=== PATIENT | female | born 1990 | race Caucasian/White ===

== ENCOUNTER 2017-03-01 00:05 | Inpatient (IN) | payer OTHER ==
[~2017-03-01 00:05] MED LIST: BUTORPHANOL TARTRATE 2 MG/ML VIAL IV PRN; INSULIN REGULAR HUMAN REC 100 UNITS in NORMAL SALINE 100 ML IV PRN; LIDOCAINE HCL 50 ML VIAL PERI PRN; ONDANSETRON HCL/PF 2 MG/ML VIAL IV PRN; OXYTOCIN/DEXTROSE 5%-WATER 30 UNITS/500 ML BAG IV ONE; RINGER'S SOLUTION,LACTATED 1,000 ML IV ONE
[2017-03-01] MEDS: RINGER'S SOLUTION,LACTATED 1,000 ML IV PRN ×2 (01:17→04:41)
[2017-03-01] MEDS ORDERED: NALOXONE HCL 1 MG/1 ML SYRG IV PRN (03:24)
[2017-03-01] MEDS ORDERED: ONDANSETRON HCL/PF 2 MG/ML VIAL IV PRN (03:24)
[2017-03-01] MEDS ORDERED: BUPIVACAINE HCL/0.9 % NACL/PF 250 ML EP PRN (03:24)
[2017-03-01] MEDS ORDERED: BUPIVACAINE HCL/PF 30 ML VIAL EP SCH (03:30)
--- NOTE | 2017-03-01 04:29 | OR ---
Anesthesia Procedure Note - Anesthesia Procedure Note Date of Service: 03/01/17 Narrative: Vital Signs - Last Taken Temp 36.7 C 03/01/17 04:09 Pulse 98 03/01/17 04:09 Resp 18 03/01/17 04:09 BP 127/89 03/01/17 04:09 Pulse Ox 99 03/01/17 04:09 03/01/17 04:28 ANESTHESIA PROCEDURE NOTE Date of Procedure: 03/01/2017. Time of procedure: 0410. Performed by: Sadiq Banda CRNA Production Miner: None. Preprocedure diagnosis: Active labor. Post procedure diagnosis: Same. Procedure: Insertion of labor epidural. Indications: The patient is a 26 -year-old female in active labor requesting labor epidural for pain management. Findings: See below. Details of the procedure: The patient was placed in a sitting position. DuraPrep as well as Betadine swabs X3 was applied to the patient's back. Patient was then draped in a sterile fashion. Lidocaine 1% was infiltrated to the skin and subcutaneous tissues at the level of the L3-4 interspace. The epidural space was identified using a 18-gauge Tuohy needle with loss-of- resistance technique. Epidural catheter was inserted to a depth of 11 centimeters at skin. Negative test dose was elicited using 3 mL of 1.5% preservative-free lidocaine plus epinephrine 1 200,000. The epidural catheter was then taped and secured in place. A loading dose of 8 mL of 0.25% preservative-free bupivacaine was administered to the epidural catheter after negative aspiration for blood and CSF. EBL: Minimal. Fluids: N/A. Specimen: N/A. Post procedure condition: The patient tolerated the procedure well. No complications were noted. Thank you for this consultation. Sadiq Banda CRNA
[2017-03-01] MEDS ORDERED: ACETAMINOPHEN 325 MG TABLET PO PRN (04:45)
--- NOTE | 2017-03-01 09:17 | PN ---
Progess Note - Interim Narrative: 03/01/17 09:15 Subjective- uncomfortable Objective- SVE- /-1 FHTs- 130's, mod ana paula, pos accels, no decels [place]- q2 min Assessment and plan- Labor- induction GBS status- [negative GDM-cont. to monitor Continue current plan of care.
[2017-03-01] MEDS ORDERED: BENZOCAINE/MENTHOL 81 SPRAY CAN TP PRN (11:24)
[2017-03-01] MEDS ORDERED: HYDROCORTISONE 30 APPL TUBE TP PRN (11:24)
[2017-03-01] MEDS ORDERED: SENNOSIDES 8.6 MG TABLET PO PRN (11:24)
[2017-03-01] MEDS ORDERED: OXYTOCIN/DEXTROSE 5%-WATER 30 UNITS/500 ML BAG IV ONE (11:24)
[2017-03-01] MEDS ORDERED: GLYCERIN/WITCH HAZEL LEAF 40 APPL BOX TP PRN (11:24)
[2017-03-01] MEDS ORDERED: BISACODYL 10 MG SUPP.RECT RC PRN (11:24)
[2017-03-01] MEDS ORDERED: oxyCODONE HCL/ACETAMINOPHEN 1 TAB TABLET PO PRN (11:24)
--- NOTE | 2017-03-01 11:28 | OR ---
Operative Report - Dictated Report Narrative: Spontaneous Vaginal Delivery Viable male with APGARS of 7 at 1 minute and 8 at 9 minutes. He delivered at 1059. Presentation was MANDEEP. Tight nuchal cord was noted after delivery of the head and this was clamped and cut perineum. The left anterior shoulder delivered with gentle downward traction followed by the posterior shoulder and the remainder of the baby. I will check amount of light colored meconium stained fluid was noted after delivery of baby. Baby was taken to the warmer and tried and stimulated. Spontaneous cry was noted. Cord gases were sent. Weight: 3333 g Placenta was delivered spontaneously and intact. A first-degree vaginal laceration was noted and repaired with 2-0 Vicryl. Estimated blood loss: 100 ml Mother and baby tolerated delivery well. History for Definition: * The number of deliveries resulting in a live the patient experienced prior to current hospitalization * The previous delivery of live twins or any live multiple gestation is considered one live event. *If primagravida or nulliparous is documented select zero for the number of previous live births. Live Events: 0
[2017-03-01] MEDS: oxyCODONE HCL/ACETAMINOPHEN 1 TAB TABLET PO PRN ×3 (12:42→19:55)
[2017-03-01] MEDS: IBUPROFEN 800 MG TABLET PO PRN ×2 (12:42→19:56)
[2017-03-01] MEDS: DOCUSATE SODIUM 100 MG CAPSULE PO SCH (21:27)
[2017-03-02] MEDS: oxyCODONE HCL/ACETAMINOPHEN 1 TAB TABLET PO PRN ×6 (00:57→21:33)
[2017-03-02] MEDS: IBUPROFEN 800 MG TABLET PO PRN ×3 (06:55→21:33)
[2017-03-02] MEDS: DOCUSATE SODIUM 100 MG CAPSULE PO SCH ×2 (10:56→20:57)
--- NOTE | 2017-03-02 10:59 | PN ---
Subjective - Date and Time Seen Date: 03/02/17 Subjective Narrative: day 1, s/p , induced for GDM doing well. bottle feeding. normal lochia. ambulating well. Objective - Vitals Vitals: Last Vital Signs Temp 36.4 C L 03/02/17 07:30 Pulse 80 03/02/17 07:30 Resp 18 03/02/17 07:30 BP 133/67 03/02/17 07:30 Pulse Ox 98 03/02/17 07:30 - Exam Constitutional: Present: Alert, Oriented x3, Cooperative Respiratory: Present: no respiratory distress Cardiovascular/Chest: Present: normal peripheral pulses Abdomen: Present: soft, nontender, nondistended, other - fundus firm and one finger below umbilicus Extremity: Present: normal range of motion, no calf tenderness, pedal edema Skin Exam: Present: normal color, warm/dry, no cyanosis Eye contact: Present: cooperative, good eye contact, normal speech Assessment/Plan Plan Narrative: A: PPD#1, s/p stable and well. Plan: routine care. ambulation encouraged. Shilpa Virk MD
[2017-03-03] MEDS: oxyCODONE HCL/ACETAMINOPHEN 1 TAB TABLET PO PRN ×4 (00:37→11:31)
[2017-03-03] MEDS: IBUPROFEN 800 MG TABLET PO PRN ×2 (05:20→11:31)
[2017-03-03] MEDS: DOCUSATE SODIUM 100 MG CAPSULE PO SCH (08:11)
--- NOTE | 2017-03-03 09:43 | PN ---
Subjective - Date and Time Seen Date: 03/03/17 Subjective Narrative: day 2, s/p , induced for GDM no complaints. denies headache or blurry vision. BP labile today, varies from normal, severe and mild range. bottle feeding. small lochia. Objective - Vitals Vitals: Last Vital Signs Temp 36.5 C 03/03/17 08:00 Pulse 96 03/03/17 08:00 Resp 18 03/03/17 08:00 BP 150/72 03/03/17 08:58 Pulse Ox 100 03/03/17 08:00 - Exam Constitutional: Present: Alert, Oriented x3, Cooperative Respiratory: Present: no respiratory distress Cardiovascular/Chest: Present: normal peripheral pulses Abdomen: Present: soft, nontender, nondistended, other - fundus firm and non- tender Extremity: Present: normal range of motion, no calf tenderness, lower extremity edema - trace, pedal edema - 1+ Skin Exam: Present: normal color, warm/dry, no cyanosis Neurologic: Present: other - DTR 2+ bilaterally knee, no clonus Eye contact: Present: cooperative, good eye contact, normal speech Assessment/Plan Plan Narrative: A: PPD#2, s/p for GDM and labile BP, but asymptomatic. Plan: will discharge home if stable. preeclampsia precautions given. follow up in clinic for BP check in a week. Shilpa Virk MD
[2017-03-03 12:50] VITALS: BP 136/80
== END 2017-03-03 13:40 | disposition home or self-care (01) | DRG 775 ==
LOC: OB 00:05
PROVIDERS: ADMIT Obstetrics & Gynecology Gynecologic Oncology; ATTEND Obstetrics & Gynecology Gynecologic Oncology
PROC: 10E0XZZ Delivery of Products of Conception, External Approach (ICD-10-PCS; principal; 2017-03-01)
PROC: 4A1HXCZ Monitoring of Products of Conception, Cardiac Rate, External Approach (ICD-10-PCS; 2017-03-01)
PROC: 0HQ9XZZ Repair Perineum Skin, External Approach (ICD-10-PCS; 2017-03-01)
PROC: 00HU33Z Insertion of Infusion Device into Spinal Canal, Percutaneous Approach (ICD-10-PCS; 2017-03-01)
DX: O24.425 Gestational diabetes mellitus in childbirth, controlled by oral hypoglycemic drugs (principal); O69.1XX0 Labor and delivery complicated by cord around neck, with compression, not applicable or unspecified; O70.0 First degree perineal laceration during delivery; R03.0 Elevated blood-pressure reading, without diagnosis of hypertension; Z3A.39 39 weeks gestation of pregnancy; Z37.0 Single live birth

== ENCOUNTER 2019-09-17 11:28 | Inpatient (IN) ==
[2019-09-17] MEDS ORDERED: LIDOCAINE HCL 50 ML VIAL PERI PRN (11:41)
[2019-09-17] MEDS ORDERED: RINGER'S SOLUTION,LACTATED 1,000 ML IV ONE (11:41)
[2019-09-17] MEDS ORDERED: OXYTOCIN/DEXTROSE 5%-WATER 30 UNITS/500 ML BAG IV ONE ×2 (11:41→23:03)
[2019-09-17] MEDS ORDERED: BUTORPHANOL TARTRATE 2 MG/ML VIAL IV PRN ×2 (11:41)
[2019-09-17] MEDS ORDERED: PENICILLIN G POTASSIUM 5 MILLIONUNT in DEXTROSE 5 % IN WATER 100 ML IV ONE ×2 (11:41)
[2019-09-17] MEDS ORDERED: ONDANSETRON 4 MG TAB.RAPDIS PO PRN (11:41)
[2019-09-17 12:17] LABS: Hematocrit 35.2 % (37.0-47.0); Hemoglobin 10.1 gm/dL (12.5-16.0); Mean Corpuscular Hemoglobin 19.8 pg (27-31); Mean Corpuscular Hgb Conc 28.7 g/dl (32-36); Mean Platelet Volume 10.5 fl (8-12.5); Neutrophil # 13.9 K/mm3 (1.3-6.0); Neutrophil % 80.8 % (42-75.0); Platelet Count 421 K/mm3 (150-450); Red Cell Distribution Width 16.7 % (11.5-14.0); White Blood Count 17.2 K/mm3 (4.0-10.5)
[2019-09-17] MEDS: RINGER'S SOLUTION,LACTATED 1,000 ML IV PRN ×2 (12:18→15:07)
[2019-09-17 12:30] LABS: Albumin * 2.4 gm/dl (3.4-5.0); Anion Gap 15.2 mmol/L (6.8-13.8); Bilirubin, Total 0.4 mg/dL (0.0-1.1); Ca. Corrected For Albumin 10.4 mg/dL (8.4-10.2); Calcium * 9.4 mg/dL (7.9-10.9); Carbon Dioxide 23.9 mmol/L (24-32.6); Potassium 4.1 mmol/L (3.4-4.6); Total Protein 7.3 gm/dL (6.2-8.2)
[2019-09-17 13:49] LABS: Random Urine Total Protein 157.7 mg/dL (0-12)
[2019-09-17] MEDS ORDERED: BUPIVACAINE HCL/0.9 % NACL/PF 250 ML EP PRN (14:16)
[2019-09-17] MEDS ORDERED: NALOXONE HCL 1 MG/1 ML SYRG IV PRN (14:16)
[2019-09-17] MEDS ORDERED: ONDANSETRON HCL/PF 2 MG/ML VIAL IV PRN (14:16)
[2019-09-17] MEDS ORDERED: fentaNYL CITRATE/PF 50 MCG/ML AMPUL IT SCH (14:30)
--- NOTE | 2019-09-17 15:06 | ANES ---
Anesthesia Pre Procedure Eval Vitals/Labs: Last Vital Signs Temp 36.4 C 09/17/19 12:09 Pulse 116 H 09/17/19 12:09 Resp 18 09/17/19 12:09 BP 137/87 09/17/19 12:09 Pulse Ox 99 09/17/19 12:09 HOME MEDICATIONS prenat.vits,violeta,[id number] 1 tab PO DAILY 04/27/19 [Last Taken 09/17/19 09:00] famotidine 20 mg tablet 20 mg PO BID #60 tab 08/04/19 [Last Taken 09/17/19 09:00] Dexlansoprazole [Dexilant] 30 mg PO DAILY PRN 09/17/19 [Last Taken Unknown] Allergies/Adverse Reactions: Allergies Allergy/AdvReac Type Severity Reaction Status Date / Time bee venom protein (honey bee) Allergy Severe Anaphylaxis Verified 09/17/19 10:54 No Known Drug Allergies Allergy Verified 09/17/19 10:54 - Planned Procedure Planned Procedure: Induction Pre-Elampsia Medication List Reviewed:: Yes Allergies Verified: Yes Medical History (Last Reviewed 09/17/19 @ 15:05 by Hair Flores CRNA) Elevated BP without diagnosis of hypertension (Acute) Symptoms as documented per RN. The patient does not have epigastric pain. Her pain is musculoskeletal. The patient does have a prior history of pre- eclampsia. Pre-eclampsia labs and UP:CR today. Signs and symptoms of severe pre-eclampsia were discussed with the patient. The patient was instructed to call with signs and symptoms of severe pre-eclampsia. Follow-up in 1 week to reassess BP. Heartburn during (Acute) Rx given for esomeprazole 20 mg PO BID History of hepatitis C (Acute) Check hepatitis C antibody History of maternal Chlamydia infection, currently in third trimester (Acute) Recheck urine GC/CT UTI (urinary tract infection) (Acute) UC today Bipolar disorder (Acute) The patient admits to feeling depressed today. She does have a history of bipolar disorder. She has a Psych provider in [place] which she was instructed to contact Methamphetamine abuse (Acute) Check UDS today Migraine (Acute) The patient was counseled regarding magnesium use in up to 1000 mg daily History of incarceration (Acute) Check RPR Encounter for supervision of other normal , second trimester (Acute) Anatomy US normal History of maternal Chlamydia infection, currently in second trimester (Acute) The patient requests recheck today. Urine GC/CT sent History of UTI (Acute) Urine culture today (Acute) Initial OB visit The patient is dated by today's ultrasound which is not concordant with the patient's LMP Pap UTD. Next pap due 2019. Obtain pap at PP visit GC/CT collected today PNL ordered today Reassess BP next visit First trimester education completed today Vaginal delivery (Acute) Depression Hepatitis Onset Date: ~11/2017 Hepatitis C History of methamphetamine use Anemia Exercise-induced asthma History of chlamydia infection Onset Date: ~2014 History of gestational diabetes Onset Date: ~2016 History of delivery Onset Date: ~2016 36 weeks Pre-eclampsia in third trimester Onset Date: ~2016 Surgical History (Last Reviewed 09/17/19 @ 15:06 by Hair Flores CRNA) History of wisdom tooth extraction Onset Date: ~2009 2014 Hx of cholecystectomy Onset Date: ~2014 Family History (Last Reviewed 09/17/19 @ 15:06 by Hair Flores CRNA) Father Brain cancer, Onset Age: 53 Mother Thyroid disease Depression Hypertension Brother Bipolar disorder - Family Anesthesia History Family History:: no untoward family reactions to anesthesia - Airway/Neck/Teeth Within Normal Limits:: Yes Teeth Condition: intact Neck Exam: full range of motion Mallampatti Score: 2 Thyromental (T-M) distance: > 6 cm Mandibulo Hyoid distance: > 3 cm - Respiratory Respiratory Physical: lungs clear Smoking Status: Current every day smoker Discussed smoking cessation including day of surgery: Yes Sleep Apnea currently treated: No Sleep Apnea by current assessment: No - Cardiovascular Tolerate Activity: Good Heart Sounds: S1 & S2, Regular - Gastrointestinal NPO since: 1100 - Anesthesia Assessment and Plan ASA Class: PS, II, E Anesthesia Type Plan: Epidural Planned difficult intubation/equipment available: No
--- NOTE | 2019-09-17 15:07 | ANES ---
Post Anesthesia Assessment - Vital Signs Vitals: Last Vital Signs Temp 36.4 C 09/17/19 12:09 Pulse 116 H 09/17/19 12:09 Resp 18 09/17/19 12:09 BP 137/87 09/17/19 12:09 Pulse Ox 99 09/17/19 12:09 Airway Patency: Normal - Mental Status Level Of Consciousness: Awake - Pain Level Pain Score: 2 - N/V Assessment Nausea/Vomiting Presence: None Dehydration:: No
--- NOTE | 2019-09-17 15:07 | ANES ---
Post Anesthesia Discharge - Transfer of Care Transfer of Care handoff given to nurse: Yes - Anesthesia Post Op Note Anesthesia Post Op Note: Care transferred to OB RN
--- NOTE | 2019-09-17 15:09 | ANES ---
Anesthesia Procedure Note Procedure Note: ANESTHESIA PROCEDURE NOTE Date of Procedure: 09/17/2019 Time of procedure: 1445. Performed by: Hernán Flores CRNA Canvas Baster: None. Preprocedure diagnosis: Active labor. Post procedure diagnosis: Same. Procedure: Insertion of labor epidural. Indications: The patient is a 28-year-old multigravida female in active labor requesting labor epidural for pain management. Findings: See below. Details of the procedure: The patient was placed in a sitting position. Back was prepped with DuraPrep. Patient was then draped in a sterile fashion. Lidocaine 1% was infiltrated to the skin and subcutaneous tissues at the level of the L3 4 interspace. The epidural space was identified using a 18-gauge Tuohy needle with aidn-[id number] technique. 20 mcg fentanyl was given intrathecally using a 27 ga. spinal needle. Epidural catheter was inserted without difficulty. Negative test dose was elicited using 5 mL of 1.5% preservative-free lidocaine plus epinephrine 1 200,000. The epidural catheter was then taped and secured in place. EBL: Minimal. Fluids: N/A. Specimen: N/A. Post procedure condition: The patient tolerated the procedure well. No complications were noted. Thank you for this consultation. Parmar CRNA
--- NOTE | 2019-09-17 17:14 | HP ---
Chief Complaint - Chief Complaint Date of Service: 09/17/19 Time of Service: 17:04 Chief Complaint: labor induction History of Present Illness: 28 year old at 36w 6d who presented to the office for a routine obstetrical visit after she did not receive care for 4 weeks. She had had an elevated BP earlier in the but her BP was subsequently normal. Today she again had mild range blood pressures and symptoms. She reports regular ctx on pitocin. She denies vaginal bleeding or loss of fluid. Fetus is active. Medical History (Last Reviewed 09/17/19 @ 17:07 by Lisy Mahmood MD) Elevated BP without diagnosis of hypertension (Acute) Symptoms as documented per RN. The patient does not have epigastric pain. Her pain is musculoskeletal. The patient does have a prior history of pre- eclampsia. Pre-eclampsia labs and UP:CR today. Signs and symptoms of severe pre-eclampsia were discussed with the patient. The patient was instructed to call with signs and symptoms of severe pre-eclampsia. Follow-up in 1 week to reassess BP. Heartburn during (Acute) Rx given for esomeprazole 20 mg PO BID History of hepatitis C (Acute) Check hepatitis C antibody History of maternal Chlamydia infection, currently in third trimester (Acute) Recheck urine GC/CT UTI (urinary tract infection) (Acute) UC today Bipolar disorder (Acute) The patient admits to feeling depressed today. She does have a history of bipolar disorder. She has a Psych provider in [place] which she was instructed to contact Methamphetamine abuse (Acute) Check UDS today Migraine (Acute) The patient was counseled regarding magnesium use in up to 1000 mg daily History of incarceration (Acute) Check RPR Encounter for supervision of other normal , second trimester (Acute) Anatomy US normal History of maternal Chlamydia infection, currently in second trimester (Acute) The patient requests recheck today. Urine GC/CT sent History of UTI (Acute) Urine culture today (Acute) Initial OB visit The patient is dated by today's ultrasound which is not concordant with the patient's LMP Pap UTD. Next pap due 2019. Obtain pap at PP visit GC/CT collected today PNL ordered today Reassess BP next visit First trimester education completed today Vaginal delivery (Acute) Depression Hepatitis Onset Date: ~11/2017 Hepatitis C History of methamphetamine use Anemia Exercise-induced asthma History of chlamydia infection Onset Date: ~2014 History of gestational diabetes Onset Date: ~2016 History of delivery Onset Date: ~2016 36 weeks Pre-eclampsia in third trimester Onset Date: ~2016 Surgical History: Surgical History (Last Reviewed 09/17/19 @ 17:07 by Lisy Mahmood MD) History of wisdom tooth extraction Onset Date: ~2009 2014 Hx of cholecystectomy Onset Date: ~2014 Family History: Family History (Last Reviewed 09/17/19 @ 17:07 by Lisy Mahmood MD) Father Brain cancer, Onset Age: 53 Mother Thyroid disease Depression Hypertension Brother Bipolar disorder Social History: (Last Reviewed 09/17/19 @ 17:07 by Lisy Mahmood MD) Social History: mcc: No Marital status: Single household members: children number of children: 1 current occupational status: unemployed current occupational exposures/hazards: No Highest education level completed: some college, no degree Sexually Active: Yes Service: Yes Tobacco: Smoking Status: Current every day smoker tobacco type: cigarettes Smoking cigarettes per day: 20.0 Smoking packs per day: 1 second hand exposure: Yes Alcohol: alcohol intake: never Substance Use: substance use type: methamphetamine, other details: last used 08/2018 Dietary Habits: caffeine: Yes Type: tea Pets: pets and animals: cat(s) Exercise: Physical activity functional status: normal ROM and activity Review Of Systems (GEN) - Review of Systems Generalized/Overall Review: Present: No Symptoms Reported EENTM: Present: Blurred Vision Respiratory: Present: No Symptoms Reported Cardiac: Present: No Symptoms Reported Abdominal: Present: No Symptoms Reported Genitourinary: Present: No Symptoms Reported Musculoskeletal: Present: No Symptoms Reported Neurological: Present: No Symptoms Reported Skin: Present: No Symptoms Reported Endocrine: Present: No Symptoms Reported Allergies/Adverse Reactions: Allergies Allergy/AdvReac Type Severity Reaction Status Date / Time bee venom protein (honey bee) Allergy Severe Anaphylaxis Verified 09/17/19 10:54 No Known Drug Allergies Allergy Verified 09/17/19 10:54 Home Medications: HOME MEDICATIONS prenat.vits,violeta,ilk-qwhc-sfnza 1 tab PO DAILY 04/27/19 [Last Taken 09/17/19 09:00] famotidine 20 mg tablet 20 mg PO BID #60 tab 08/04/19 [Last Taken 09/17/19 09:00] Dexlansoprazole [Dexilant] 30 mg PO DAILY PRN 09/17/19 [Last Taken Unknown] Exam - Exam Vital Signs: Vital Signs - Last Taken Temp 36.4 C 09/17/19 12:09 Pulse 116 H 09/17/19 12:09 Resp 18 09/17/19 12:09 BP 137/87 09/17/19 12:09 Pulse Ox 99 09/17/19 12:09 Constitutional: Present: Alert, Oriented x3, Cooperative, No distress ENT Exam: Present: hearing grossly normal Eye Exam: bilateral eye: normal inspection Neck: Present: normal inspection Back Exam: Present: normal inspection Respiratory: Present: lungs clear, normal breath sounds Cardiovascular/Chest: Present: regular rate, rhythm Abdomen: Present: soft, nontender, nondistended /Rectal: Present: Other - 2/70/-3 AROM for clear fluid Extremity: Present: non-tender, no calf tenderness, pedal edema Skin Exam: Present: normal color, warm/dry, no cyanosis Appearance: Present: appropriate appearance Eye contact: Present: cooperative Thoughts: Present: normal thought pattern Diagnostic Studies: Abnormal Lab Results 09/17/19 09/17/19 09/17/19 Range/Units 11:20 12:13 12:13 WBC 17.2 H (4.0-10.5) K/mm3 Hgb 10.1 L (12.5-16.0) gm/dL Hct 35.2 L (37.0-47.0) % MCV 69.0 L (78-100) fl MCH 19.8 L (27-31) pg MCHC 28.7 L (32-36) g/dl RDW 16.7 H (11.5-14.0) % Immature Gran % (Auto) 0.80 H (0.001-0.429) % Immature Gran # (Auto) 0.14 H (0.000-0.0310) K/mm3 Neutrophils % 80.8 H (42-75.0) % Lymphocytes % 12.5 L (20-51) % Neutrophils # 13.9 H (1.3-6.0) K/mm3 Carbon Dioxide 23.9 L (24-32.6) mmol/L Anion Gap 15.2 H (6.8-13.8) mmol/L Random Glucose 114 H (70-110) mg/dL Calcium Adj for Albumin 10.4 H (8.4-10.2) mg/dL ALT 14 L (19-67) U/L Alkaline Phosphatase 190 H (50-170) U/L Albumin 2.4 L (3.4-5.0) gm/dl U Random Total Protein 157.7 H (0-12) mg/dL U Hopkins Prot/Creat Ratio 1542 H (0-199) mg/gm Laboratory Results WBC 17.2 K/mm3 (4.0-10.5) H 09/17/19 12:13 RBC 5.10 M/mm3 (4.2-5.4) 09/17/19 12:13 Hgb 10.1 gm/dL (12.5-16.0) L 09/17/19 12:13 Hct 35.2 % (37.0-47.0) L 09/17/19 12:13 MCV 69.0 fl (78-100) L 09/17/19 12:13 MCH 19.8 pg (27-31) L 09/17/19 12:13 MCHC 28.7 g/dl (32-36) L 09/17/19 12:13 RDW 16.7 % (11.5-14.0) H 09/17/19 12:13 Plt Count 421 K/mm3 (150-450) 09/17/19 12:13 MPV 10.5 fl (8-12.5) 09/17/19 12:13 Immature Gran % (Auto) 0.80 % (0.001-0.429) H 09/17/19 12:13 Immature Gran # (Auto) 0.14 K/mm3 (0.000-0.0310) H 09/17/19 12:13 Neutrophils % 80.8 % (42-75.0) H 09/17/19 12:13 Lymphocytes % 12.5 % (20-51) L 09/17/19 12:13 Monocytes % 5.4 % (0.0-9) 09/17/19 12:13 Eosinophils % 0.2 % (0.0-3.0) 09/17/19 12:13 Basophils % 0.3 % (0.0-1.0) 09/17/19 12:13 Nucleated RBC % 0.0 k/mm3 (0-1) 09/17/19 12:13 Neutrophils # 13.9 K/mm3 (1.3-6.0) H 09/17/19 12:13 Lymphocytes # 2.15 k/mm3 (1.5-3.5) 09/17/19 12:13 Monocytes # 0.9 k/mm3 (0.0-1.0) 09/17/19 12:13 Eosinophils # 0.0 k/mm3 (0.0-0.7) 09/17/19 12:13 Absolute Basophils 0.1 k/mm3 (0.0-0.1) 09/17/19 12:13 Sodium 136 mmol/L (132-142) 09/17/19 12:13 Plasma Sodium 136 mmol/L (130-142) 09/17/19 12:13 Potassium 4.1 mmol/L (3.4-4.6) D 09/17/19 12:13 Chloride 101 mmol/L (97-106) 09/17/19 12:13 Carbon Dioxide 23.9 mmol/L (24-32.6) L 09/17/19 12:13 Anion Gap 15.2 mmol/L (6.8-13.8) H 09/17/19 12:13 BUN 15 mg/dL (3-23) D 09/17/19 12:13 Creatinine 0.75 mg/dL (0.4-1.4) 09/17/19 12:13 Est GFR (Non-Af Amer) 99 mL/min (60-130) 09/17/19 12:13 BUN/Creatinine Ratio 20.0 (9.0-21.6) 09/17/19 12:13 Random Glucose 114 mg/dL (70-110) H 09/17/19 12:13 Calcium 9.4 mg/dL (7.9-10.9) 09/17/19 12:13 Calcium Adj for Albumin 10.4 mg/dL (8.4-10.2) H 09/17/19 12:13 Total Bilirubin 0.4 mg/dL (0.0-1.1) 09/17/19 12:13 AST 18 U/L (0-48) 09/17/19 12:13 ALT 14 U/L (19-67) L 09/17/19 12:13 Alkaline Phosphatase 190 U/L (50-170) H 09/17/19 12:13 Total Protein 7.3 gm/dL (6.2-8.2) 09/17/19 12:13 Albumin 2.4 gm/dl (3.4-5.0) L 09/17/19 12:13 Ur Random Creatinine 102.3 mg/dL (60-200) 09/17/19 11:20 U Random Total Protein 157.7 mg/dL (0-12) H 09/17/19 11:20 U Hopkins Prot/Creat Ratio 1542 mg/gm (0-199) H 09/17/19 11:20 Blood Type O Positive 09/17/19 12:13 Antibody Screen Negative 09/17/19 12:13 Assessment/Plan - Narrative Narrative: 28 year old at 36w 6d with symptomatic pre-eclampsia without severe features BP in the mild to normal range with one severe range BP Pitocin currently at 6 milliunits AROM done for clear fluid FHT cat 1 GBS unknown due to loss of follow-up for 4 weeks. GBS prophylaxis undertaken UDS + metaamphetamines on admission to labor and delivery Likely UTI: on PCN, treat with cefuroxime after delivery Epidural in place and the patient is comfortable with epidural - Assessment/Plan (1) Pre-eclampsia Problem: Acute Qualifiers: Trimester: third trimester Qualified Code(s): O14.93 - Unspecified pre- eclampsia, third trimester (2) Hepatitis C Assessment: The patient will follow-up with Hepatology after delivery Problem: Acute Qualifiers: Viral hepatitis chronicity: chronic Hepatic coma status: without hepatic coma Qualified Code(s): B18.2 - Chronic viral hepatitis C (3) History of maternal Chlamydia infection, currently in third trimester Assessment: Negative LUIZ Problem: Acute (4) UTI (urinary tract infection) Assessment: Receiving PCN. Treat with additional antibiotics once the UC results area available. Start cefuroxime 500mg PO BID empirically after the patient delivers Problem: Acute Qualifiers: Urinary tract infection type: acute cystitis Hematuria presence: without hematuria Qualified Code(s): N30.00 - Acute cystitis without hematuria (5) Methamphetamine abuse Problem: Acute
[2019-09-17] MEDS: PENICILLIN G POTASSIUM 2.5 MILLIONUNT in DEXTROSE 5 % IN WATER 100 ML IV SCH ×4 (17:27→21:38)
[2019-09-17] MEDS ORDERED: diphenhydrAMINE HCL 25 MG CAPSULE PO PRN (23:03)
[2019-09-17] MEDS ORDERED: HYDROCORTISONE 30 APPL TUBE TP PRN (23:03)
[2019-09-17] MEDS ORDERED: BENZOCAINE/MENTHOL 81 SPRAY CAN TP PRN (23:03)
[2019-09-17] MEDS ORDERED: BISACODYL 10 MG SUPP.RECT RC PRN (23:03)
[2019-09-17] MEDS ORDERED: SENNOSIDES 8.6 MG TABLET PO PRN (23:03)
[2019-09-17] MEDS ORDERED: GLYCERIN/WITCH HAZEL LEAF 40 APPL BOX TP PRN (23:03)
--- NOTE | 2019-09-17 23:04 | OR ---
Operative Report - Dictated Report Narrative: Date of delivery: 09/17/2019 Time of delivery: 2250 Gender: male weight: 3004 grams APGARS: 8/9 Procedure: Description of the procedure: The patient is a 28 year old at 36w 6d with pre-eclampsia without severe features who underwent medical IOL. She p rogressed to complete dilation. She delivered a viable male in EDER presentation over an intact perineum. The right hand presented along with the vertex. The shoulders delivered without any difficulty followed by the rest of the infant. Cord clamping was delayed for 40 seconds. The cord was clamped and cut. Cord blood was collected. The placenta delivered by expression and appeared intact. EBL: 200 mL Complications: none Specimens: cord blood, placenta History for MU Definition: * The number of deliveries resulting in a live the patient experienced prior to current hospitalization * The previous delivery of live twins or any live multiple gestation is considered one live event. *If primagravida or nulliparous is documented select zero for the number of previous live births. Live Events: 1
[2019-09-18] MEDS: IBUPROFEN 800 MG TABLET PO PRN ×3 (00:07→16:11)
[2019-09-18] MEDS: ACETAMINOPHEN 500 MG TABLET PO PRN ×2 (00:07→06:58)
--- NOTE | 2019-09-18 07:47 | PN ---
Subjective - Date and Time Seen Date: 09/18/19 Time: 07:45 Subjective Narrative: Patient reports she feels sore Objective Objective Narrative: See vital signs - Review of Systems Abdominal: Reports: No Symptoms Reported Genitourinary Symptoms: Reports: Other - vaginal bleeding as expected PP - Vitals Vitals: Last Vital Signs Temp 36.4 C 09/18/19 07:38 Pulse 87 09/18/19 07:38 Resp 16 09/18/19 07:38 BP 140/74 H 09/18/19 07:38 Pulse Ox 99 09/18/19 07:38 - Abnormal Lab Findings Abnormal Lab Findings: Abnormal Lab Results 09/17/19 09/17/19 09/17/19 Range/Units 11:20 12:13 12:13 WBC 17.2 H (4.0-10.5) K/mm3 Hgb 10.1 L (12.5-16.0) gm/dL Hct 35.2 L (37.0-47.0) % MCV 69.0 L (78-100) fl MCH 19.8 L (27-31) pg MCHC 28.7 L (32-36) g/dl RDW 16.7 H (11.5-14.0) % Immature Gran % (Auto) 0.80 H (0.001-0.429) % Immature Gran # (Auto) 0.14 H (0.000-0.0310) K/mm3 Neutrophils % 80.8 H (42-75.0) % Lymphocytes % 12.5 L (20-51) % Neutrophils # 13.9 H (1.3-6.0) K/mm3 Carbon Dioxide 23.9 L (24-32.6) mmol/L Anion Gap 15.2 H (6.8-13.8) mmol/L Random Glucose 114 H (70-110) mg/dL Calcium Adj for Albumin 10.4 H (8.4-10.2) mg/dL ALT 14 L (19-67) U/L Alkaline Phosphatase 190 H (50-170) U/L Albumin 2.4 L (3.4-5.0) gm/dl U Random Total Protein 157.7 H (0-12) mg/dL U [place] Prot/Creat Ratio 1542 H (0-199) mg/gm - Exam Constitutional: Present: Alert, Oriented x3, Cooperative, No distress Abdomen: Present: soft, nontender, nondistended - fundus is firm Extremity: Present: non-tender, no calf tenderness Skin Exam: Present: normal color, warm/dry, no cyanosis Appearance: Present: appropriate appearance Eye contact: Present: cooperative Thoughts: Present: normal thought pattern Cauti Physician Documentation - Urinary Catheter Management Urethral ([place]eda) Urethral Indwelling: No Date of Insertion: 09/17/19 Time of Insertion: 15:33 Date of Removal: 09/17/19 Time of Removal: 22:40 Assessment/Plan Plan Narrative: PPD 1 s/p Doing well Pre-eclampsia: BP in the normal to mild range as expected Discharge tomorrow - Problems/Diagnosis (1) Pre-eclampsia Problem: Acute Qualifiers: Trimester: third trimester Qualified Code(s): O14.93 - Unspecified pre- eclampsia, third trimester (2) Hepatitis C Problem: Acute Qualifiers: Viral hepatitis chronicity: chronic Hepatic coma status: without hepatic coma Qualified Code(s): B18.2 - Chronic viral hepatitis C (3) History of maternal Chlamydia infection, currently in third trimester Problem: Acute (4) UTI (urinary tract infection) Problem: Acute Qualifiers: Urinary tract infection type: acute cystitis Hematuria presence: without hematuria Qualified Code(s): N30.00 - Acute cystitis without hematuria (5) Methamphetamine abuse Problem: Acute
[2019-09-18] MEDS: CEFUROXIME AXETIL 500 MG TABLET PO SCH ×2 (09:55→21:02)
[2019-09-18] MEDS: oxyCODONE HCL 5 MG TABLET PO PRN ×2 (09:55→16:11)
[2019-09-18] MEDS: DOCUSATE SODIUM 100 MG CAPSULE PO SCH ×2 (12:07→21:02)
[2019-09-19] MEDS: IBUPROFEN 800 MG TABLET PO PRN ×3 (02:26→19:52)
[2019-09-19] MEDS: oxyCODONE HCL 5 MG TABLET PO PRN ×4 (04:31→23:53)
[2019-09-19] MEDS: CEFUROXIME AXETIL 500 MG TABLET PO SCH ×2 (08:11→21:04)
[2019-09-19] MEDS: DOCUSATE SODIUM 100 MG CAPSULE PO SCH ×2 (08:12→21:04)
--- NOTE | 2019-09-19 10:06 | PN ---
Subjective - Date and Time Seen Date: 09/19/19 Time: 10:05 Subjective Narrative: Patient reports she feels sore Objective Objective Narrative: See vital signs - Review of Systems Generalized/Overall Review: Reports: No Symptoms Reported Endocrine: Reports: No Symptoms Reported Misc: All systems neg except as marked - Vitals Vitals: Last Vital Signs Temp 35.7 C L 09/19/19 08:51 Pulse 86 09/19/19 08:51 Resp 16 09/19/19 08:51 BP 128/58 09/19/19 08:51 Pulse Ox 99 09/19/19 08:51 - Exam Constitutional: Present: Alert, Oriented x3, Cooperative, No distress Abdomen: Present: soft, nontender, nondistended Extremity: Present: non-tender, no calf tenderness Skin Exam: Present: normal color, warm/dry, no cyanosis Appearance: Present: appropriate appearance Eye contact: Present: cooperative Thoughts: Present: normal thought pattern Cauti Physician Documentation - Urinary Catheter Management Urethral (Ojeda) Urethral Indwelling: No Date of Insertion: 09/17/19 Time of Insertion: 15:33 Date of Removal: 09/17/19 Time of Removal: 22:40 Assessment/Plan Plan Narrative: PPD 2 s/p Doing well Pre-eclampsia without severe features: blood pressures mostly normal recently but earlier yesterday blood pressures were mild range History of PPD: restart sertraline, Rx sent today UTI: Sensitivities available today, continue cefuroxime. Rx sent for cefuroxime yesterday Discharge today Follow-up in 4 weeks or sooner for any other concerns - Problems/Diagnosis (1) Pre-eclampsia Problem: Acute Qualifiers: Trimester: third trimester Qualified Code(s): O14.93 - Unspecified pre- eclampsia, third trimester (2) Hepatitis C Problem: Acute Qualifiers: Viral hepatitis chronicity: chronic Hepatic coma status: without hepatic coma Qualified Code(s): B18.2 - Chronic viral hepatitis C (3) History of maternal Chlamydia infection, currently in third trimester Problem: Acute (4) UTI (urinary tract infection) Problem: Acute Qualifiers: Urinary tract infection type: acute cystitis Hematuria presence: without hematuria Qualified Code(s): N30.00 - Acute cystitis without hematuria (5) Methamphetamine abuse Problem: Acute
[2019-09-19] MEDS ORDERED: SERTRALINE HCL 50 MG TABLET PO SCH (21:00)
[2019-09-19 21:01] VITALS: BP 118/66
[2019-09-20] MEDS ORDERED: SERTRALINE HCL 50 MG TABLET PO SCH (09:00)
[2019-09-20] MEDS ORDERED: SERTRALINE HCL 100 MG TABLET PO SCH (09:00)
== END 2019-09-19 23:56 | disposition home or self-care (01) | DRG 806 ==
LOC: OB 11:28
PROVIDERS: ADMIT Obstetrics & Gynecology; ATTEND Obstetrics & Gynecology
DX: B17.10 Acute hepatitis C without hepatic coma; Z3A.37 37 weeks gestation of pregnancy; O14.04 Mild to moderate pre-eclampsia, complicating childbirth; O75.3 Other infection during labor; O99.324 Drug use complicating childbirth; F15.10 Other stimulant abuse, uncomplicated; Z37.0 Single live birth
CPT/HCPCS: 36415; 59025; 80053; 82570; 84155; 84156; 85025; 86850; 88307; 88888

== ENCOUNTER 2020-04-21 17:10 | Observation (INO) ==
[2020-04-21 17:32] LABS: Urine Bilirubin Negative (NEGATIVE); Urine Blood 50 /ul (NEGATIVE); Urine Ketone Negative (NEGATIVE); Urine Nitrite Negative (NEGATIVE); Urine Protein 100 mg/dL (NEGATIVE); Urine Specific Gravity 1.025 SP.GR. (1.005-1.010); Urine Urobilinogen Normal (NORMAL)
[2020-04-21] MEDS ORDERED: NORMAL SALINE 1,000 ML IV ONE ×3 (17:37→19:42)
[2020-04-21] MEDS ORDERED: KETOROLAC TROMETHAMINE 30 MG/ML VIAL IV ONE (17:37)
[2020-04-21 17:56] LABS: Urine Color Yellow
[2020-04-21 17:57] LABS: Urine Appearance Cloudy (CLEAR); Urine WBC >50 /hpf (0-5)
[2020-04-21 17:58] LABS: Urine Bacteria 1+
[2020-04-21 18:02] LABS: Albumin * 2.7 gm/dl (3.4-5.0); Anion Gap 15.4 mmol/L (6.8-13.8); BUN/Creatinine Ratio 12.8 (9.0-21.6); Bilirubin, Total 0.3 mg/dL (0.0-1.1); Ca. Corrected For Albumin 9.5 mg/dL (8.4-10.2); Calcium * 8.8 mg/dL (7.9-10.9); Carbon Dioxide 24.2 mmol/L (24-32.6); Potassium 3.6 mmol/L (3.4-4.6); Total Protein 7.9 gm/dL (6.2-8.2)
[2020-04-21 18:12] LABS: Hematocrit 36.7 % (37.0-47.0); Hemoglobin 10.8 gm/dL (12.5-16.0); Mean Cell Volume 70.7 fl (78-100); Mean Corpuscular Hemoglobin 20.8 pg (27-31); Mean Corpuscular Hgb Conc 29.4 g/dl (32-36); Mean Platelet Volume 9.4 fl (8-12.5); Neutrophil # 14.5 K/mm3 (1.3-6.0); Neutrophil % 87.5 % (42-75.0); Platelet Count 468 K/mm3 (150-450); Red Blood Count 5.19 M/mm3 (4.2-5.4); Red Cell Distribution Width 17.1 % (11.5-14.0); White Blood Count 16.6 K/mm3 (4.0-10.5)
[2020-04-21] MEDS ORDERED: ACETAMINOPHEN 500 MG TABLET PO ONE (18:27)
[2020-04-21] MEDS ORDERED: MORPHINE SULFATE 4 MG/ML SYRG IV ONE (18:32)
[2020-04-21] MEDS ORDERED: cefTRIAXone SODIUM 2,000 MG/100 ML BAG IV ONE (18:33)
[2020-04-21] MEDS ORDERED: ONDANSETRON HCL/PF 2 MG/ML VIAL ONE (18:39)
[2020-04-21] MEDS ORDERED: ONDANSETRON HCL/PF 2 MG/ML VIAL IV ONE (18:40)
--- NOTE | 2020-04-21 19:15 | ERNOTE ---
ER Female HPI Date of Service: 04/21/20 Stated Complaint: blood in urine, back pain Presenting Symptoms: dysuria, other - Hematuria, flank pain Time Seen by Provider: 04/21/20 17:21 Source: patient, RN notes reviewed Exam Limitations: no limitations Immunizations: IMMUNIZATION HX Immunizations Up to Date Yes Allergies/Adverse Reactions: Allergies bee venom protein (honey bee) Allergy (Severe, Verified 09/17/19 10:54) Anaphylaxis No Known Drug Allergies Allergy (Verified 09/17/19 10:54) Home Medications: HOME MEDICATIONS Cefuroxime Axetil [Ceftin] 500 mg PO Q12H #10 tab 09/18/19 [Last Taken Unknown] Sertraline HCl [Zoloft] 100 mg PO DAILY #30 tab 09/19/19 [Last Taken Unknown] - History of Present Illness Narrative: Miracle is a 29 year old female who presents to the ED for flank pain and urinary symptoms that have been ongoing for 5 days. She reports dysuria and urinary frequency, as well as blood in her urine at times. Her pain is in the left flank. She denies any vomiting. Her LMP was 04/18/20. She has not taken anything for her symptoms today. She also reports having a low grade fever. Timing: Present: getting worse Quality: Present: severe Onset Location: Present: left flank Radiation: Present: none Activities at Onset: Present: none Prior Abdominal Problems: Present: none Associated Symptoms: Present: fever/chills, nausea, dysuria, urinary frequency. Absent: vomiting Prior Treatment: Absent: recently seen Review of Systems - Review of Systems Constitutional: Present: fever, fatigue, malaise. Absent: recent illness EYE: Present: no symptoms reported ENT: Present: no symptoms reported Respiratory: Absent: shortness of breath, cough Cardiology: Absent: chest pain, syncope Gastrointestinal/Abdominal: Present: nausea. Absent: vomiting, diarrhea, abdominal pain Genitourinary: Present: frequency, dysuria, hematuria Musculoskeletal: Present: back pain, muscle pain. Absent: joint pain Skin: Absent: rash, lesions Neurological: Absent: headache, dizziness/light-headedness Endocrine: Present: no symptoms reported Hematologic/Lymphatic: Absent: easy bruising, easy bleeding Psych: Present: no symptoms reported Medical History (Last Reviewed 04/21/20 @ 19:39 by Johana Gellatly, ASSISTANT [employer] PROFESSIONAL) Elevated BP without diagnosis of hypertension (Acute) Symptoms as documented per RN. The patient does not have epigastric pain. Her pain is musculoskeletal. The patient does have a prior history of pre- eclampsia. Pre-eclampsia labs and UP:CR today. Signs and symptoms of severe pre-eclampsia were discussed with the patient. The patient was instructed to call with signs and symptoms of severe pre-eclampsia. Follow-up in 1 week to reassess BP. Heartburn during (Acute) Rx given for esomeprazole 20 mg PO BID History of hepatitis C (Acute) Check hepatitis C antibody History of maternal Chlamydia infection, currently in third trimester (Acute) Recheck urine GC/CT UTI (urinary tract infection) (Acute) UC today Bipolar disorder (Acute) The patient admits to feeling depressed today. She does have a history of bipolar disorder. She has a Psych provider in [place] which she was instructed to contact Methamphetamine abuse (Acute) Check UDS today Migraine (Acute) The patient was counseled regarding magnesium use in up to 1000 mg daily History of incarceration (Acute) Check RPR Encounter for supervision of other normal , second trimester (Acute) Anatomy US normal History of maternal Chlamydia infection, currently in second trimester (Acute) The patient requests recheck today. Urine GC/CT sent History of UTI (Acute) Urine culture today (Acute) Initial OB visit The patient is dated by today's ultrasound which is not concordant with the patient's LMP Pap UTD. Next pap due 2019. Obtain pap at PP visit GC/CT collected today PNL ordered today Reassess BP next visit First trimester education completed today Vaginal delivery (Acute) Depression Hepatitis Onset Date: ~11/2017 Hepatitis C History of methamphetamine use Anemia Exercise-induced asthma History of chlamydia infection Onset Date: ~2014 History of gestational diabetes Onset Date: ~2016 History of delivery Onset Date: ~2016 36 weeks Pre-eclampsia in third trimester Onset Date: ~2016 Surgical History: Surgical History (Last Reviewed 04/21/20 @ 19:39 by Johana Dan NP) History of wisdom tooth extraction Onset Date: ~2009 2014 Hx of cholecystectomy Onset Date: ~2014 Family History: Family History (Last Reviewed 04/21/20 @ 19:39 by Johana Dan NP) Father Brain cancer, Onset Age: 53 Mother Thyroid disease Depression Hypertension Brother Bipolar disorder Social History: (Last Reviewed 04/21/20 @ 19:39 by Johana Dan NP) Social History: [place] [facility] No Marital status: Single household members: children number of children: 1 current occupational status: unemployed current occupational exposures/hazards: No Highest education level completed: some college, no degree Sexually Active: Yes Service: Yes Tobacco: Smoking Status: Current every day smoker tobacco type: cigarettes Smoking cigarettes per day: 20.0 Smoking packs per day: 1 second hand exposure: Yes Alcohol: alcohol intake: never Substance Use: substance use type: methamphetamine, other details: last used 08/2019 Dietary Habits: caffeine: Yes Type: tea Pets: pets and animals: cat(s) Exercise: Physical activity functional status: normal ROM and activity Physical Exam - Physical Exam General Appearance: Present: wd/wn, alert, mild distress Head Exam: Present: normal inspection Eye Exam: Normal inspection: bilateral Neck: Present: normal inspection, nontender, supple, full range of motion Respiratory: Present: no respiratory distress, normal breath sounds, no accessory muscle use, lungs clear Cardiovascular/Chest: Present: no murmur, normal peripheral pulses, tachycardia Gastrointestinal/Abdominal: Present: normal bowel sounds, nondistended, soft, tenderness - suprapubic Back Exam: Present: normal range of motion, no vertebral tenderness, CVA tenderness (L). Absent: CVA tenderness (R) Extremity Exam: Present: normal inspection, normal range of motion, no edema Neurological Exam: Present: alert, oriented, normal mood/affect, no motor/sensory deficits Skin Exam: Present: normal color, warm/dry Progress - Results and Orders Patient's Lab Results:: I have reviewed the patient's lab results. - Vital Signs Patient's Vital Signs:: I have reviewed the patient's vital signs. Vital Signs: Vital Signs 04/21/20 17:20 04/21/20 18:49 Temperature 37.5 C Pulse Rate 134 H 103 H Respiratory Rate 19 16 Blood Pressure 114/69 107/49 O2 Sat by Pulse Oximetry 100 99 - CT/Ultrasound CT/Ultrasound Narrative: Stone protocol CT: Findings: There are no renal, ureteral, or bladder calcifications to suggest kidney stones. There is no hydronephrosis or hydroureter. Evaluation of the remainder of the abdomen and pelvis is otherwise limited by the noncontrast protocol. There is mild stool in the colon. There is mild prominence of the colon suggesting mild ileus. There is no bowel obstruction or free air. IMPRESSION: NO KIDNEY STONES OR ASSOCIATED COMPLICATIONS IDENTIFIED. MILD ILEUS WITH MILD RETAINED STOOL. Electronically signed by Hair Quick M.D.. - Progress/Reassessment Chief Complaint: Genitourinary Problem Progress:: Improved Plan - Plan Plan: The patient has a WBC of 16K and an initial lactic acid of 3.0. She has been given 2 liters of IV NS, as well as 2 grams of Rocephin IV. Her tachycardia has improved. A second lactic acid and blood and urine cultures are pending. Dr. Higgins was contacted and the patient will be admitted. Departure Clinical Impression: Pyelonephritis - Departure Disposition: Still a patient Condition: Stable
[2020-04-21] MEDS ORDERED: ACETAMINOPHEN 325 MG TABLET PO PRN (19:41)
[2020-04-22] MEDS: PANTOPRAZOLE SODIUM 20 MG TABLET.DR PO SCH ×2 (00:44→07:42)
[2020-04-22] MEDS ORDERED: KETOROLAC TROMETHAMINE 30 MG/ML VIAL IV PRN (01:29)
[2020-04-22 06:43] LABS: Hematocrit 30.2 % (37.0-47.0); Hemoglobin 8.7 gm/dL (12.5-16.0); Mean Cell Volume 72.1 fl (78-100); Mean Corpuscular Hemoglobin 20.8 pg (27-31); Mean Corpuscular Hgb Conc 28.8 g/dl (32-36); Mean Platelet Volume 10.2 fl (8-12.5); Neutrophil # 9.7 K/mm3 (1.3-6.0); Neutrophil % 81.6 % (42-75.0); Platelet Count 319 K/mm3 (150-450); Red Blood Count 4.19 M/mm3 (4.2-5.4); Red Cell Distribution Width 17.3 % (11.5-14.0); White Blood Count 11.9 K/mm3 (4.0-10.5)
[2020-04-22 07:02] LABS: Anion Gap 13.1 mmol/L (6.8-13.8); Bilirubin, Total 0.1 mg/dL (0.0-1.1); Ca. Corrected For Albumin 9.7 mg/dL (8.4-10.2); Calcium * 8.4 mg/dL (7.9-10.9); Carbon Dioxide 22.7 mmol/L (24-32.6); Potassium 3.8 mmol/L (3.4-4.6); Total Protein 6.1 gm/dL (6.2-8.2)
[2020-04-22] MEDS ORDERED: NICOTINE 21 MG PATC TD SCH (08:30)
[2020-04-22] MEDS ORDERED: KETOROLAC TROMETHAMINE 60 MG/2 ML VIAL IM PRN (08:30)
--- NOTE | 2020-04-22 08:32 | HPDIS ---
Chief Complaint - Chief Complaint Date of Service: 04/22/20 Time of Service: 08:17 Chief Complaint: Have had lower back and flank pain with fever and chills for 1 week. History of Present Illness: 29-year-old female with past medical history of anemia, depression, bipolar disorder, and meth abuse was evaluated in our ER for worsening bilateral lower back pain/flank pain that is worse on the left, hematuria, and fever and chills of 1 week duration. Patient reports a week ago she developed pain in both kidneys but was more intense of the left and noticed that she had blood in her urine, she denies any alleviating factors. The patient reports yesterday morning she became feverish and developed chills so she decided to go to the hospital. While in the ER the patient underwent labs which revealed signs of sepsis with a leukocytosis, tachycardia, positive lactic acid, and worsening renal function. Upon questioning the patient reports a bout of UTIs but does not recall how long ago it was. She said it might have been multiple years ago. The patient reports in that instance she was treated with p.o. antibiotic by her PCP and the condition resolved. She has not had any issues until now. The patient has a known history of abusing methamphetamine but says she stopped using meth and drinking about a month ago, she does however currently smoke cigarettes. She denies any other symptoms. Medical History (Last Updated 04/22/20 @ 09:41 by Elyse Neal RN) Elevated BP without diagnosis of hypertension (Acute) Symptoms as documented per RN. The patient does not have epigastric pain. Her pain is musculoskeletal. The patient does have a prior history of pre- eclampsia. Pre-eclampsia labs and UP:CR today. Signs and symptoms of severe pre-eclampsia were discussed with the patient. The patient was instructed to call with signs and symptoms of severe pre-eclampsia. Follow-up in 1 week to reassess BP. Heartburn during (Inactive) Rx given for esomeprazole 20 mg PO BID History of hepatitis C (Acute) Check hepatitis C antibody History of maternal Chlamydia infection, currently in third trimester (Acute) Recheck urine GC/CT UTI (urinary tract infection) (Acute) UC today Bipolar disorder (Acute) The patient admits to feeling depressed today. She does have a history of bipolar disorder. She has a Psych provider in [place] which she was instructed to contact Methamphetamine abuse (Acute) Check UDS today Migraine (Acute) The patient was counseled regarding magnesium use in up to 1000 mg daily History of incarceration (Acute) Check RPR Encounter for supervision of other normal , second trimester (Acute) Anatomy US normal History of maternal Chlamydia infection, currently in second trimester (Acute) The patient requests recheck today. Urine GC/CT sent History of UTI (Acute) Urine culture today Vaginal delivery (Acute) Depression Hepatitis Onset Date: ~11/2017 Hepatitis C History of methamphetamine use Anemia Exercise-induced asthma History of chlamydia infection Onset Date: ~2014 History of gestational diabetes Onset Date: ~2016 History of delivery Onset Date: ~2016 36 weeks Pre-eclampsia in third trimester Onset Date: ~2016 (Resolved) Initial OB visit The patient is dated by today's ultrasound which is not concordant with the patient's LMP Pap UTD. Next pap due 2019. Obtain pap at PP visit GC/CT collected today PNL ordered today Reassess BP next visit First trimester education completed today Surgical History: Surgical History (Last Reviewed 04/21/20 @ 20:20 by Ritika Vu RN) History of wisdom tooth extraction Onset Date: ~2009 2014 Hx of cholecystectomy Onset Date: ~2014 Family History: Family History (Last Reviewed 04/21/20 @ 20:20 by Ritika Vu RN) Father Brain cancer, Onset Age: 53 Mother Thyroid disease Depression Hypertension Brother Bipolar disorder Social History: (Last Reviewed 04/21/20 @ 20:20 by Ritika Vu RN) Social History: prison: No Marital status: Single household members: children number of children: 1 current occupational status: unemployed current occupational exposures/hazards: No Highest education level completed: some college, no degree Sexually Active: Yes Service: Yes Tobacco: Smoking Status: Current every day smoker tobacco type: cigarettes Smoking cigarettes per day: 20.0 Smoking packs per day: 1 second hand exposure: Yes Alcohol: alcohol intake: never Substance Use: substance use type: methamphetamine, other details: last used 08/2019 Dietary Habits: caffeine: Yes Type: tea Pets: pets and animals: cat(s) Exercise: Physical activity functional status: normal ROM and activity Peds Patient Hx - Developmental: No Pertinent Hx Peds Patient Hx - Medical: No Pertinent Hx Peds Patient Hx - Cardiac/Respiratory: No Pertinent Hx Peds Patient Hx - Surgical: No Surgical History Patient History - Cancer: No Hx of Cancer Review Of Systems (GEN) - Review of Systems Generalized/Overall Review: Present: Chills, Fever EENTM: Present: No Symptoms Reported Respiratory: Present: No Symptoms Reported Cardiac: Present: No Symptoms Reported Abdominal: Present: No Symptoms Reported Genitourinary: Present: Frequency, Hematuria, Other - Lower back/kidney pain Musculoskeletal: Present: No Symptoms Reported Neurological: Present: No Symptoms Reported Skin: Present: No Symptoms Reported Endocrine: Present: No Symptoms Reported Immunizations: IMMUNIZATION HX Immunizations Up to Date Yes Allergies/Adverse Reactions: Allergies Allergy/AdvReac Type Severity Reaction Status Date / Time bee venom protein (honey bee) Allergy Severe Anaphylaxis Verified 09/17/19 10:54 No Known Drug Allergies Allergy Verified 09/17/19 10:54 Home Medications: HOME MEDICATIONS Ketorolac Tromethamine [Toradol] 10 mg PO Q8H PRN #30 tab 04/22/20 [Last Taken Unknown] Sertraline HCl [Zoloft] 100 mg PO DAILY tablet 04/22/20 [Last Taken Unknown] Sulfamethoxazole/Trimethoprim [Bactrim Ds] 1 tab PO BID 5 Days #10 tablet 04/22/20 [Last Taken Unknown] Exam - Exam Vital Signs: Vital Signs - Last Taken Temp 37.3 C 04/22/20 06:54 Pulse 84 04/22/20 06:54 Resp 18 04/22/20 06:54 BP 112/64 04/22/20 06:54 Pulse Ox 100 04/22/20 06:54 Constitutional: Present: Alert, Oriented x3, Cooperative, Well developed, Well nourished, No distress ENT Exam: Present: normal ENT inspection, hearing grossly normal Eye Exam: bilateral eye: normal inspection, PERRL, EOMI Neck: Present: non-tender, full range of motion, supple, normal inspection, trachea midline Back Exam: Present: CVA tenderness (R), CVA tenderness (L) Breasts: Present: Exam deferred Respiratory: Present: chest non-tender, lungs clear, normal breath sounds, no respiratory distress, no accessory muscle use Cardiovascular/Chest: Present: normal peripheral pulses, regular rate, rhythm, no chest tenderness, no edema, no gallop, no JVD, no murmur, no rub Peripheral Pulses: dorsalis-pedis (R): 3+, dorsalis-pedis (L): 3+ Abdomen: Present: Normal bowel sounds, soft, nontender, nondistended, no rebound tenderness, no hepatospenomegaly, no masses /Rectal: Present: Exam deferred Extremity: Present: normal range of motion, non-tender, normal inspection, no pedal edema, no calf tenderness, normal capillary refill, pelvis stable Skin Exam: Present: normal color, warm/dry, no cyanosis Lymphatic: Present: no adenopathy Neurologic: Present: supplier diversity director II-XII nml as tested, normal cerebellar test, no motor/sensory deficits, alert, normal mood/affect, oriented x 3 Appearance: Present: appropriate appearance, appropriate insight, neat, no memory impairment Eye contact: Present: cooperative, good eye contact, normal speech Thoughts: Present: normal thought pattern, no apparent hallucination Diagnostic Studies: Abnormal Lab Results 04/21/20 04/21/20 04/21/20 Range/Units 17:19 17:43 17:43 WBC (4.0-10.5) K/mm3 RBC (4.2-5.4) M/mm3 Hgb (12.5-16.0) gm/dL Hct (37.0-47.0) % MCV (78-100) fl MCH (27-31) pg MCHC (32-36) g/dl RDW (11.5-14.0) % Plt Count (150-450) K/mm3 Immature Gran % (Auto) (0.001-0.429) % Immature Gran # (Auto) (0.000-0.0310) K/mm3 Neutrophils % (42-75.0) % Lymphocytes % (20-51) % Neutrophils # (1.3-6.0) K/mm3 Lymphocytes # (1.5-3.5) k/mm3 Monocytes # (0.0-1.0) k/mm3 Chloride 96 L (97-106) mmol/L Carbon Dioxide (24-32.6) mmol/L Anion Gap 15.4 H (6.8-13.8) mmol/L Creatinine 1.56 H D (0.4-1.4) mg/dL Est GFR (Non-Af Amer) 42 L D (60-130) mL/min Random Glucose 198 H (70-110) mg/dL Lactic Acid, Venous 3.0 H* (0.4-2.0) mmol/L ALT 11 L (19-67) U/L Total Protein (6.2-8.2) gm/dL Albumin 2.7 L (3.4-5.0) gm/dl Urine Protein 100 H (NEGATIVE) mg/dL Urine Blood 50 H (NEGATIVE) /ul Prot Sulfosalicylic Acd 3+ H (0) mg/dL Ur Leukocyte Esterase 100 H (NEGATIVE) /ul Urine RBC 10-25 H (0-5) /hpf Urine WBC >50 H (0-5) /hpf Ur Epithelial Cells 10-25 H (0-5) /hpf Urine Bacteria 1+ H (NONE) 04/21/20 04/22/20 04/22/20 Range/Units 17:59 06:00 06:00 WBC 16.6 H 11.9 H D (4.0-10.5) K/mm3 RBC 4.19 L (4.2-5.4) M/mm3 Hgb 10.8 L 8.7 L (12.5-16.0) gm/dL Hct 36.7 L 30.2 L (37.0-47.0) % MCV 70.7 L 72.1 L (78-100) fl MCH 20.8 L 20.8 L (27-31) pg MCHC 29.4 L 28.8 L (32-36) g/dl RDW 17.1 H 17.3 H (11.5-14.0) % Plt Count 468 H (150-450) K/mm3 Immature Gran % (Auto) 0.50 H 0.50 H (0.001-0.429) % Immature Gran # (Auto) 0.08 H 0.06 H (0.000-0.0310) K/mm3 Neutrophils % 87.5 H 81.6 H (42-75.0) % Lymphocytes % 4.9 L 9.0 L (20-51) % Neutrophils # 14.5 H 9.7 H (1.3-6.0) K/mm3 Lymphocytes # 0.81 L 1.07 L (1.5-3.5) k/mm3 Monocytes # 1.2 H (0.0-1.0) k/mm3 Chloride (97-106) mmol/L Carbon Dioxide 22.7 L (24-32.6) mmol/L Anion Gap (6.8-13.8) mmol/L Creatinine (0.4-1.4) mg/dL Est GFR (Non-Af Amer) (60-130) mL/min Random Glucose 152 H (70-110) mg/dL Lactic Acid, Venous (0.4-2.0) mmol/L ALT 17 L (19-67) U/L Total Protein 6.1 L (6.2-8.2) gm/dL Albumin 2.0 L (3.4-5.0) gm/dl Urine Protein (NEGATIVE) mg/dL Urine Blood (NEGATIVE) /ul Prot Sulfosalicylic Acd (0) mg/dL Ur Leukocyte Esterase (NEGATIVE) /ul Urine RBC (0-5) /hpf Urine WBC (0-5) /hpf Ur Epithelial Cells (0-5) /hpf Urine Bacteria (NONE) Microbiology 04/21/20 17:19 Urine Culture - Preliminary Urine,Clean Catch Gram Negative Bacilli Laboratory Results WBC 11.9 K/mm3 (4.0-10.5) H D 04/22/20 06:00 RBC 4.19 M/mm3 (4.2-5.4) L 04/22/20 06:00 Hgb 8.7 gm/dL (12.5-16.0) L 04/22/20 06:00 Hct 30.2 % (37.0-47.0) L 04/22/20 06:00 MCV 72.1 fl (78-100) L 04/22/20 06:00 MCH 20.8 pg (27-31) L 04/22/20 06:00 MCHC 28.8 g/dl (32-36) L 04/22/20 06:00 RDW 17.3 % (11.5-14.0) H 04/22/20 06:00 Plt Count 319 K/mm3 (150-450) 04/22/20 06:00 MPV 10.2 fl (8-12.5) 04/22/20 06:00 Immature Gran % (Auto) 0.50 % (0.001-0.429) H 04/22/20 06:00 Immature Gran # (Auto) 0.06 K/mm3 (0.000-0.0310) H 04/22/20 06:00 Neutrophils % 81.6 % (42-75.0) H 04/22/20 06:00 Lymphocytes % 9.0 % (20-51) L 04/22/20 06:00 Monocytes % 8.4 % (0.0-9) 04/22/20 06:00 Eosinophils % 0.3 % (0.0-3.0) 04/22/20 06:00 Basophils % 0.2 % (0.0-1.0) 04/22/20 06:00 Nucleated RBC % 0.0 k/mm3 (0-1) 04/22/20 06:00 Neutrophils # 9.7 K/mm3 (1.3-6.0) H 04/22/20 06:00 Lymphocytes # 1.07 k/mm3 (1.5-3.5) L 04/22/20 06:00 Monocytes # 1.0 k/mm3 (0.0-1.0) 04/22/20 06:00 Eosinophils # 0.0 k/mm3 (0.0-0.7) 04/22/20 06:00 Absolute Basophils 0.0 k/mm3 (0.0-0.1) 04/22/20 06:00 Sodium 137 mmol/L (132-142) 04/22/20 06:00 Plasma Sodium 138 mmol/L (130-142) 04/22/20 06:00 Potassium 3.8 mmol/L (3.4-4.6) 04/22/20 06:00 Chloride 105 mmol/L (97-106) 04/22/20 06:00 Carbon Dioxide 22.7 mmol/L (24-32.6) L 04/22/20 06:00 Anion Gap 13.1 mmol/L (6.8-13.8) 04/22/20 06:00 BUN 16 mg/dL (3-23) 04/22/20 06:00 Creatinine 1.00 mg/dL (0.4-1.4) 04/22/20 06:00 Est GFR (Non-Af Amer) 71 mL/min (60-130) D 04/22/20 06:00 BUN/Creatinine Ratio 16.0 (9.0-21.6) 04/22/20 06:00 Random Glucose 152 mg/dL (70-110) H 04/22/20 06:00 Lactic Acid, Venous 1.2 mmol/L (0.4-2.0) 04/21/20 20:28 Calcium 8.4 mg/dL (7.9-10.9) 04/22/20 06:00 Calcium Adj for Albumin 9.7 mg/dL (8.4-10.2) 04/22/20 06:00 Total Bilirubin 0.1 mg/dL (0.0-1.1) 04/22/20 06:00 AST 20 U/L (0-48) 04/22/20 06:00 ALT 17 U/L (19-67) L 04/22/20 06:00 Alkaline Phosphatase 100 U/L (50-170) 04/22/20 06:00 Total Protein 6.1 gm/dL (6.2-8.2) L 04/22/20 06:00 Albumin 2.0 gm/dl (3.4-5.0) L 04/22/20 06:00 Serum HCG, Qual Negative (NEGATIVE) 04/21/20 17:43 Urine Color Yellow 04/21/20 17:19 Urine Appearance Cloudy (CLEAR) 04/21/20 17:19 Urine pH 6.0 pH (5.0-7.0) 04/21/20 17:19 Ur Specific [place] 1.025 SP.GR. (1.005-1.010) 04/21/20 17:19 Urine Protein 100 mg/dL (NEGATIVE) H 04/21/20 17:19 Urine Glucose (UA) Negative mg/dL (NEGATIVE) 04/21/20 17: Urine Ketones Negative mg/dL (NEGATIVE) 04/21/20 17:19 Urine Blood 50 /ul (NEGATIVE) H 04/21/20 17:19 Urine Nitrate Negative (NEGATIVE) 04/21/20 17:19 Urine Bilirubin Negative mg/dl (NEGATIVE) 04/21/20 17:19 Prot Sulfosalicylic Acd 3+ mg/dL (0) H 04/21/20 17:19 Urine Urobilinogen Normal EU/dl (NORMAL) 04/21/20 17:19 Ur Leukocyte Esterase 100 /ul (NEGATIVE) H 04/21/20 17:19 Urine RBC 10-25 /hpf (0-5) H 04/21/20 17:19 Urine WBC >50 /hpf (0-5) H 04/21/20 17:19 Ur Epithelial Cells 10-25 /hpf (0-5) H 04/21/20 17:19 Urine Bacteria 1+ (NONE) H 04/21/20 17:19 Urine Culture Comments Culture to follow 04/21/20 17:19 Assessment/Plan - Narrative Narrative: Patient was evaluated medical chart was reviewed and decision to admit for a diagnosis and treatment of acute pyelonephritis was made. Patient was treated with IV antibiotics and IV fluids and follow-up labs revealed significant improvement in her leukocytosis and renal function. It is very possible that the patient had dehydration in addition to the pyelonephritis. She does however continue to complain of pain but we have been managing this with pain medications. We will keep the patient in the hospital for few more hours and treat her with an additional dose of IV antibiotics, and consider discharging her at the end of the workday today. - Assessment/Plan (1) Acute pyelonephritis due to bacteria Problem: Acute (2) History of hepatitis C Problem: Acute (3) Methamphetamine abuse Problem: Acute (4) History of UTI Problem: Acute (5) Depression Problem: Acute (6) Nicotine dependence Problem: Acute (7) Anemia Problem: Acute (1) Acute pyelonephritis due to bacteria Problem: Acute (2) History of hepatitis C Problem: Acute (3) Methamphetamine abuse Problem: Acute (4) History of UTI Problem: Acute (5) Depression Problem: Acute (6) Nicotine dependence Problem: Acute (7) Anemia Problem: Acute Date of Discharge:: 04/22/20 Hospital Course: Patient has shown significant clinical improvement and response of the intrahospital treatment with IV antibiotics and IV fluids and pain meds. Follow-up CBC revealed significant improvement and almost complete resolution of her leukocytosis and there has been no recurrence of fever or chills. Aside from residual pain the patient denies any other new symptoms. Therefore we are going to discharge her home with instructions to follow-up with her PCP in 5 days and with 5 more days of p.o. antibiotics and pain meds. Procedures Performed: none Results and Findings: Pending [facility] Results 04/21/20 17:19 Urine,Clean Catch Urine Culture - Preliminary Gram Negative Bacilli Lab Pending Results 04/21/20 17:19: Urine Color Yellow, Urine Appearance Cloudy, Urine pH 6.0, Ur Specific [place] 1.025, Urine Protein 100 H, Urine Glucose (UA) Negative, Urine Ketones Negative, Urine Blood 50 H, Urine Nitrate Negative, Urine Bilirubin Negative, Prot Sulfosalicylic Acd 3+ H, Urine Urobilinogen Normal, Ur Leukocyte Esterase 100 H, Urine RBC 10-25 H, Urine WBC >50 H, Ur Epithelial Cells 10-25 H, Urine Bacteria 1+ H, Urine Culture Comments Culture to follow 04/21/20 17:43: Sodium 132, Plasma Sodium 134, Potassium 3.6, Chloride 96 L, Carbon Dioxide 24.2, Anion Gap 15.4 H, BUN 20, Creatinine 1.56 H D, Est GFR (Non-Af Amer) 42 L D, BUN/Creatinine Ratio 12.8, Random Glucose 198 H, Calcium 8.8, Calcium Adj for Albumin 9.5, Total Bilirubin 0.3, AST 8, ALT 11 L, Alkaline Phosphatase 111, Total Protein 7.9, Albumin 2.7 L 04/21/20 17:43: Lactic Acid, Venous 3.0 H* 04/21/20 17:43: Serum HCG, Qual Negative 04/21/20 17:59: WBC 16.6 H, RBC 5.19, Hgb 10.8 L, Hct 36.7 L, MCV 70.7 L, MCH 20.8 L, MCHC 29.4 L, RDW 17.1 H, Plt Count 468 H, MPV 9.4, Immature Gran % (Auto) 0.50 H, Immature Gran # (Auto) 0.08 H, Neutrophils % 87.5 H, Lymphocytes % 4.9 L, Monocytes % 6.9, Eosinophils % 0.1, Basophils % 0.1, Nucleated RBC % 0.0, Neutrophils # 14.5 H, Lymphocytes # 0.81 L, Monocytes # 1.2 H, Eosinophils # 0.0, Absolute Basophils 0.0 04/21/20 20:28: Lactic Acid, Venous 1.2 04/22/20 06:00: WBC 11.9 H D, RBC 4.19 L, Hgb 8.7 L, Hct 30.2 L, MCV 72.1 L, MCH 20.8 L, MCHC 28.8 L, RDW 17.3 H, Plt Count 319, MPV 10.2, Immature Gran % (Auto) 0.50 H, Immature Gran # (Auto) 0.06 H, Neutrophils % 81.6 H, Lymphocytes % 9.0 L, Monocytes % 8.4, Eosinophils % 0.3, Basophils % 0.2, Nucleated RBC % 0.0, Neutrophils # 9.7 H, Lymphocytes # 1.07 L, Monocytes # 1.0, Eosinophils # 0.0, Absolute Basophils 0.0 04/22/20 06:00: Sodium 137, Plasma Sodium 138, Potassium 3.8, Chloride 105, Carbon Dioxide 22.7 L, Anion Gap 13.1, BUN 16, Creatinine 1.00, Est GFR (Non-Af Amer) 71 D, BUN/Creatinine Ratio 16.0, Random Glucose 152 H, Calcium 8.4, Calcium Adj for Albumin 9.7, Total Bilirubin 0.1, AST 20, ALT 17 L, Alkaline Phosphatase 100, Total Protein 6.1 L, Albumin 2.0 L Discharge Location: Home Disposition: Home self-care Condition: Stable Face to Face Encounter completed per [facility] Guidelines: No Discharge Activity: Activity as tolerated Discharge Diet: General/regular food Additional Patient Instructions (free text): [facility] you have an appointment with Dr. Mahmood on March at 1:45. Prescriptions (Any new or edited meds): Sulfamethoxazole/Trimethoprim [Bactrim Ds] 1 tab PO BID 5 Days #10 tablet Ketorolac Tromethamine [Toradol] 10 mg PO Q8H PRN #30 tab PRN Reason: Pain Transmission Status: Pending to [id number] Complete Home Medications List: Complete Home Medication List: Ketorolac Tromethamine [Toradol] 10 mg PO Q8H PRN #30 tab 04/22/20 Sertraline HCl [Zoloft] 100 mg PO DAILY tablet 04/22/20 Sulfamethoxazole/Trimethoprim [Bactrim Ds] 1 tab PO BID 5 Days #10 tablet 04/22/20 Forms: Patient Portal Registration
[2020-04-22] MEDS ORDERED: SERTRALINE HCL 100 MG TABLET PO SCH (09:00)
[2020-04-22] MEDS ORDERED: SERTRALINE HCL 50 MG TABLET PO SCH (09:00)
[2020-04-22 14:07] LABS: Hematocrit 29.8 % (37.0-47.0); Hemoglobin 8.7 gm/dL (12.5-16.0); Mean Cell Volume 71.6 fl (78-100); Mean Corpuscular Hemoglobin 20.9 pg (27-31); Mean Corpuscular Hgb Conc 29.2 g/dl (32-36); Mean Platelet Volume 9.6 fl (8-12.5); Neutrophil # 8.4 K/mm3 (1.3-6.0); Platelet Count 329 K/mm3 (150-450); Red Blood Count 4.16 M/mm3 (4.2-5.4); Red Cell Distribution Width 17.4 % (11.5-14.0); White Blood Count 10.8 K/mm3 (4.0-10.5)
[2020-04-22 16:40] VITALS: BP 110/55
[2020-04-23] MEDS ORDERED: KETOROLAC TROMETHAMINE 10 MG TABLET PO SCH (09:00)
== END 2020-04-22 16:41 | disposition home or self-care (01) ==
LOC: MS 17:10 → ER 17:10 → MS 19:50
PROVIDERS: ADMIT Family Medicine; ATTEND Family Medicine